=== PATIENT | female | born 2005 | race Caucasian/White ===

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

== ENCOUNTER 2023-05-12 18:28 | Emergency (ER) | payer OTHER, SELFPAY ==
[2023-05-12 18:33] VITALS: BP 150/80; PULSE 98; RESP 18; TEMP 37.3; O2SAT 99
[2023-05-12 18:37] VITALS: BP 150/80; PULSE 98; RESP 18; TEMP 37.3; O2SAT 99
--- NOTE | 2023-05-12 18:54 | ED.URI ---
HPI - URI/Sore Throat General Chief Complaint: Upper Respiratory Infection Stated Complaint: fever/headache/aches/throat Time Seen by Provider: 05/12/23 18:54 Source: patient and RN notes reviewed Mode of arrival: ambulatory Limitations: no limitations History of Present Illness HPI Narrative: 18-year-old female presents concern for fever, body aches, headache, sore throat, nasal congestion, rhinorrhea. Reports symptoms started yesterday. She reports she has a preemie baby a home. She denies taking any medications for her symptoms. MD elicited complaint: cough and sore throat Related Data Home Medications Medication Instructions Recorded Confirmed dicyclomine 10 mg capsule 10 mg PO BID 05/10/23 05/10/23 Allergies Allergy/AdvReac Type Severity Reaction Status Date / Time adhesive tape Allergy Itching Verified 05/10/23 16:39 Review of Systems Review of Systems: CONSTITUTIONAL: Reports malaise, chills, sweats, fever. EYES: Denies visual changes, redness, or discharge. ENT: Reports rhinorrhea, congestion, and sore throat. CARDIOVASCULAR: Denies chest pain, palpitations, or edema. RESPIRATORY: Reports cough. Denies dyspnea. GASTROINTESTINAL: Denies abdominal pain, nausea, vomiting, diarrhea SKIN: Denies rash or itching. MUSCULOSKELETAL: Reports myalgia. NEUROLOGIC: Reports headache. All systems reviewed & are unremarkable except as noted in HPI and below PMFSH Past Medical History Medical History (Updated 05/12/23 @ 19:29 by Marguerite Horn NP) IBS (irritable bowel syndrome) Patient denies medical problems Pre-diabetes Surgical History Surgical History History of hemangioma excision Family History Family History Grandparent Diabetes mellitus Heart disease Social History Social History Smoking status: Never smoker Alcohol intake: former Alcohol use details: pt is Substance use: never Living arrangements: with family Occupation/Education: occupation Gender identity (if verbalized by the patient): Female Sexual Orientation (if Verbalized by the Patient): Straight or Heterosexual Comments At time of signature, agree with nursing past medical, surgical, social and family history. There is no relevant family history pertinent to the presenting complaint Exam Narrative: GENERAL: Well-appearing, well-nourished, and in no acute distress. HEAD: Normocephalic EYES: PERRLA, conjunctivae clear ENT: Nares clear, turbinates edematous and erythematous, clear discharge. Mucous membranes moist. TM pearly garrison with dull light reflex bilaterally; no tragal tenderness. Oropharynx not erythematous without lesions. Tonsils not enlarged and without exudate, no drooling, no hoarseness, no trismus, uvula midline. NECK: Supple. No lymphadenopathy CHEST: Clear to auscultation, breath sounds equal. No wheezing, rhonchi, rales, or stridor. No respiratory distress, speaks in full sentences. HEART: Regular rate and rhythm. No murmur heard. SKIN: Warm, dry, no rash. NEURO: Alert and oriented x3. PSYCH: Normal mood and affect Course Course Emergency Course: Patient is aware of diagnosis, understands and agrees to treatment plan. Anticipatory guidance given. Patient agrees to follow-up as directed and is aware of reasons to seek care at the emergency department. Portions of this record may have been created with voice recognition software Level of Care: Express Care Visit Vital Signs Vital signs: Vital Signs Temperature 99.2 F 05/12/23 18:33 Pulse Rate 98 05/12/23 18:33 Respiratory Rate 18 05/12/23 18:33 Blood Pressure 150/80 H 05/12/23 18:33 Pulse Oximetry 99 05/12/23 18:33 Oxygen Delivery Room Air 05/12/23 18:33 Temperature 99.2 F 05/12/23 18:37 Pulse Rate 98 05/12/23 18:37 Respiratory Rate 18
== END 2023-05-12 19:37 | disposition home or self-care (01) ==
PROVIDERS: Emergency Provider Nurse Practitioner
DX: B34.9 Viral infection, unspecified (principal); Z20.822 Contact with and (suspected) exposure to COVID-19; R73.03 Prediabetes
CPT/HCPCS: 87081; 87426; 87804; 87880; 99213; C9803; G0463

== ENCOUNTER 2024-05-03 13:21 | Emergency (ER) | payer OTHER, SELFPAY ==
--- NOTE | ~2024-05-03 | XR_ITS ---
XR abdomen/kub 1V Ordering provider: Ammy Weaver NP History: . Swelling stretchmarks LT below belly button 2 weeks hx ibs . Comparison: None. FINDINGS: BOWEL: Nonobstructive bowel gas pattern. ORGANOMEGALY: None. SIGNIFICANT PATHOLOGIC CALCIFICATIONS: None. OTHER: No free air is seen under the diaphragm. IMPRESSION: NO ACUTE ABDOMINAL FINDINGS. Reviewed, dictated and finalized at location A. 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
[2024-05-03 13:33] VITALS: BP 129/70; PULSE 79; RESP 16; TEMP 37.1; O2SAT 100
--- NOTE | 2024-05-03 14:02 | ED_ITS ---
HPI - Abdominal Pain General Chief Complaint: Abdominal Pain Stated Complaint: Lump on Stomach has IBS was told to get evaluated Time Seen by Provider: 05/03/24 14:02 Source: patient, RN notes reviewed and old records reviewed Mode of arrival: ambulatory Limitations: no limitations History of Present Illness HPI narrative: 19 year old female who presents to [facility] care with complaints of 2 week duration of increased IBS symptoms and reports that she feels like she has a raised area on her left abdomen area. Patient reports that she will get some sharp pains in her abdomen and then she gets diarrhea some times everyday. Patient reports that she has had IBS symptoms since she was 11 years old with the intermittent colicky abdominal pain and diarrhea. She reports that she has never seen GI specialist or had a scope done. Patient reports no incidence of nausea with vomiting or any noted blood in stools. Patient reports that she did try Bentyl in the past with no help with symptoms.Patient reports no pain to abdomen at present time. MD elicited complaint: other (IBS) Pertinent past history: other (states history of IBS symptoms since around 11 years old ) Onset (ago): week(s) (increased symptoms for 2 weeks.) Pain Consistency: intermittent and colicky Location: LLQ Pain scale (0-10): 2 Quality: cramping, sharp and dull Associated symptoms: diarrhea Treatments prior to arrival: other (none) Related Data Allergies Allergy/AdvReac Type Severity Reaction Status Date / Time adhesive tape Allergy Itching Verified 05/03/24 15:09 Review of Systems Review of Systems: CONSTITUTIONAL: Denies fever, chills, or sweats. EYES: Denies visual changes, redness, or discharge. ENT: Denies rhinorrhea, congestion, sore throat, or otalgia. CARDIOVASCULAR: Denies chest pain, palpitations, or edema. RESPIRATORY: Denies cough or dyspnea. GASTROINTESTINAL: Denies present abdominal pain, nausea, vomiting, reports some episodes of diarrhea with colicky low abdominal pain GENITOURINARY: Denies dysuria or hematuria. SKIN: Denies rash or itching. MUSCULOSKELETAL: Denies back pain, joint pain, or myalgia. NEUROLOGIC: Denies headache, numbness, or weakness. PSYCHIATRIC:Reports history of anxiety or depression. All systems reviewed & are unremarkable except as noted in HPI and below PMFSH Past Medical History Medical History ADHD (attention deficit hyperactivity disorder) IBS (irritable bowel syndrome) Patient denies medical problems Pre-diabetes Surgical History Surgical History History of hemangioma excision Family History Family History Grandparent Diabetes mellitus Heart disease Social History Social History Smoking status: Current every day smoker Tobacco type: e-cigarettes/vaping Alcohol intake: current Alcohol use details: rare social Substance use: never Substance use type: does not use Living arrangements: with family Occupation/Education: occupation Gender identity (if verbalized by the patient): Female Sexual Orientation (if Verbalized by the Patient): Straight or Heterosexual Comments At time of signature, agree with nursing past medical, surgical, social and family history. There is no relevant family history pertinent to the presenting complaint Exam Narrative: GENERAL: Well-appearing, well-nourished, and in no acute distress. HEAD: Normocephalic, atraumatic. EYES: PERRLA and EOMI. ENT: Nares clear, no rhinorrhea or epistaxis. Mucous membranes moist.TM's normal light reflex, throat pink with no lesions or swelling NECK: Supple. no lymphadenopathy CHEST: Clear to auscultation. No respiratory distress.SAO2 100% on room air HEART: Regular rate and rhythm. No murmur heard. Normal peripheral pulses. ABDOMEN: Soft, nontender on palpation,no rigidity, no McBurney point tenderness, palpable mass noted in left lower abdomen, nondistended, normal active bowel sounds. EXTREMITIES: Normal range of motion. No edema. SKIN: Warm, dry, no rash. NEURO: No focal deficits. Alert and oriented x3. Course Course Emergency Course: Patient is aware of diagnosis, understands and agrees to treatment plan.? Anticipatory guidance given.? Patient agrees to follow-up as directed and is aware of reasons to seek care at the emergency department. Portions of this record may have been created with voice recognition software Level of Care: Express Care Visit Vital Signs Vital signs: Vital Signs Temperature 37.1 C 05/03/24 13:33 Pulse Rate 79 05/03/24 13:33 Respiratory Rate 16 05/03/24 13:33 Blood Pressure 129/70 05/03/24 13:33 Pulse Oximetry 100 05/03/24 13:33 Oxygen Delivery Room Air 05/03/24 13:33 Temperature 37.1 C 05/03/24 13:33 Pulse Rate 79 05/03/24 13:33 Respiratory Rate 16 05/03/24 13:33 Blood Pressure 129/70 05/03/24 13:33 Pulse Oximetry 100 05/03/24 13:33 Oxygen Delivery Room Air 05/03/24 13:33 Reviewed MDM - Abdominal Pain Differential Diagnosis Differential diagnosis: Likely diverticulitis and other (abdominal discomfort and cramping, episodes of diarrhea, IBS) Medical Records Attestation: I reviewed the patient's medical records. Imaging Data Attestation: I personally reviewed and interpreted this imaging study as follows: My impression: no obstruction or free air in abdomen Radiologist's impression: ITS Impressions Abdomen X-Ray 05/03/24 14:29 IMPRESSION: NO ACUTE ABDOMINAL FINDINGS. [place] [id number] XRay Report Signed Patient: Mariya Sigala : 2005 MR#: [id number] Age: 19 Acct:[id number] Loc: [facility] ADM Date: 05/03/24Attending Dr: Ordering Physician: Ammy Weaver APRN Date of Service: 05/03/24 Procedure(s): XR abdomen/kub 1V Accession Number(s): [id number] cc: Ammy Weaver APRN; UNKNOWN,DOCTOR~ XR abdomen/kub 1V Ordering provider: Ammy Weaver NP History: . Swelling stretchmarks LT below belly button 2 weeks hx ibs . Comparison: None. FINDINGS: BOWEL: Nonobstructive bowel gas pattern. ORGANOMEGALY: None. SIGNIFICANT PATHOLOGIC CALCIFICATIONS: None. OTHER: No free air is seen under the diaphragm. IMPRESSION: NO ACUTE ABDOMINAL FINDINGS. Reviewed, dictated and finalized at location A. [facility] [employer] Dictated By: Fernando Rmasay MD 05/03/24 1429 Signed By: <Electronically signed by Fernando Ramsay MD in OV> Critical Care Time Critical Care Time Critical Care Time: No Discharge Plan Discharge Clinical Impression: History of IBS Patient Disposition: Home, Self-Care Condition: Stable Instructions: Irritable Bowel Syndrome (ED) Additional Instructions: Avoid fried, greasy, fatty, fried foods Avoid caffeine, nicotine, and alcohol Levsin up to 4 times daily for abdominal cramping. Tylenol only for discomfort Sometimes ibuprofen/Aleve can cause increased stomach upset Can take [id number] Imodium for diarrhea Follow-up with her PCP if continued problems or uncontrolled pain Follow up with PCP for referral to GI for scope If your symptoms persist, change or worsen significantly before you can contact your personal physician then please, without delay, go to the emergency department for further evaluation. Follow-up with PCP in 7-10 days or sooner if needed Follow up with PCP soon in regards to your blood pressure which is elevated abov e threshold for referral. Blood pressure above 120/80 may indicate pre- hypertension. Prescriptions: New hyoscyamine sulfate [Levsin/SL] 0.125 mg tablet, sublingual 0.125 mg sublingual QID PRN (Reason: dyspepsia) Qty: 20 0RF Follow-up/Referrals: UNKNOWN,DOCTOR [Primary Care Provider] - Time of Disposition: 14:50 Quality Hilario Coma Scale Eyes: Open Verbal: Oriented and Alert Motor: Follows Commands [place] Coma Total Score: 15
== END 2024-05-03 14:55 | disposition home or self-care (01) ==
PROVIDERS: Emergency Provider Registered Nurse
DX: K58.9 Irritable bowel syndrome, unspecified (principal); R73.03 Prediabetes; F17.290 Nicotine dependence, other tobacco product, uncomplicated
CPT/HCPCS: 74018; 99213; G0463

== ENCOUNTER 2025-01-02 17:05 | Outpatient (CLI) | payer BC, MEDICAID, SELFPAY ==
--- OUTSIDE RECORDS SUMMARY | 2025-01-02 17:17 | XMS_ITS | Referral Summary ---
Author Organization [facility] Address [address] [place] [address] Care Team Providers Care Automated Access Systems Technician Name Role Phone No, Physician Primary Care Provider [phone] Allergies Active Allergy Reactions Criticality Noted Date Comments Adhesive Swelling,Redness Medium 04/17/2022 Medications methylphenidat e (RITALIN) 10 mg tablet take 1 tablet by oral route every day 0 0 5 Active methylphenidat e ER (CONCERTA) 36 mg CR tablet take 1 tablet by oral route every day in the morning 0 0 5 Active promethazine-D M (PROMETHAZINE- DM) 1.25-3 mg/mL syrup Take 5 mL by mouth 4 (four) times a day as needed for cough (Runny nose, and nausea) Collaborating physician Titus Dunbar MD 118 mL 2 Active albuterol HFA (PROVENTIL HFA,VENTOLIN HFA,PROAIR HFA) 90 mcg/actuation inhaler Inhale 2 puffs every 4 (four) hours as needed for wheezing or shortness of breath Collaborating physician Titus Dunbar MD 1 each 2 Active acetaminophen (TYLENOL) 500 mg tablet Take 1 tablet (500 mg total) by mouth every 6 (six) hours as needed for pain or fever Collaborating physician Titus Dunbar MD 30 tablet 2 Active HYDROcodone-ac etaminophen (NORCO) 5-325 mg per tabletIndicati ons:Pain Take 1-2 tablets by mouth every 4 (four) hours as needed for pain Do not exceed 8 tablets/day. 6 tablet 3 Active Active Problems Problem Noted Date Diagnosed Date COVID-19 virus infection 01/14/2022 Panic attack 01/14/2022 Positive urine test 01/14/2022 Attention-deficit hyperactivity disorder 012 Overview (04/17/2022): Note: Unchanged Social History Tobacco Use Types Packs/Day Years Used Date Smoking Tobacco: Never Tobacco Cessation:Counseling Given: Not Answered Social Connection and Isolat ion Panel [NHANES] Answer Date Recorded In a typical week, how many times do you talk on the phone with family, friends, or neighbors? More than three times a week 05/04/2022 How often do you get togethe r with friends or relatives? More than three times a week 05/04/2022 How often do you attend chur ch or pentecostal services? More than 4 times per year 05/04/2022 Do you belong to any clubs o r organizations such as episcopalian groups, unions, fraternal or athletic groups, or school groups? No 05/04/2022 How often do you attend meet ings of the clubs or organizations you belong to? Never 05/04/2022 Are you , , di vorced, , never , or living with a partner? Never 05/04/2022 AUDIT-C Answer Date Recorded Q1: How often do you have a drink containing alc ohol? Never 05/04/2022 Average Number of Drinks Not on file 022 Q3: How often do you have si x or more drinks on one occasion? Never 05/04/2022 Overall Financial Resource Strain (CARDIA) Answe r Date Recorded How hard is it for you to pa y for the very basics like food, housing, medical care, and heating? Not very hard 05/04/2022 PHQ-2 Answer Date Recorded PHQ-2 Total Score (If total score is 3 or more points, staff should administer the PHQ-9) 0 05/04/2022 [facility] - Occupational Stress Questionnaire Answer Date Recorded Do you feel stress - tense, restless, nervous, or anxious, or unable to sleep at night because your mind is troubled all the time - these days? Not at all 05/04/2022 Exercise Vital Sign Answer Date Recorde d On average, how many days pe r week do you engage in moderate to strenuous exercise (like a brisk walk)? 0 days 05/04/2022 On average, how many minutes do you engage in exercise at this level? 0 min 05/04/2022 Hunger Vital Sign Answer Date Recorded Within the past 12 months, y ou worried that your food would run out before you got the money to buy more. Never true 05/04/20 22 Within the past 12 months, t he food you bought just didn't last and you didn't have money to get more. Never true 05/04/2022 PRAPARE - Transportation Answer Date Re corded In the past 12 months, has l ack of transportation kept you from medical appointments or from getting medications? No 04/08 In the past 12 months, has l ack of transportation kept you from meetings, work, or from getting things needed for daily living? No 05/04/2022 Housing Stability Vital Sign Answer Rajesh e Recorded In the last 12 months, was t here a time when you were not able to pay the mortgage or rent on time? No 05/04/2022 Number of Places Lived in the Last Year Not on f ile 05/04/2022 In the last 12 months, was t here a time when you did not have a steady place to sleep or slept in a mcc (including now)? No 05/04/2022 Personal Safety Answer Date Recorded Have you ever been in or are you currently in a harmful physical or emotional relationship or is someone making you feel afraid or unsafe? Denies 05/22/2023 Comments No Sex and Gender Information Value Date Recorded Sex Assigned at Not on file Legal Sex Female 3:55 AM CALL OUT OPERATOR Gender Identity Not on file Sexual Orientation Not on file Last Filed Vital Signs Vital Sign Reading Time Taken Comments Blood Pressure 142/73 05/22/2023 12:00 PM CALL OUT OPERATOR Pulse 95 05/22/2023 12:00 PM CALL OUT OPERATOR Temperature 36.8 C (98.2 F) 05/22/2023 11:35 AM CALL OUT OPERATOR Respiratory Rate 18 05/22/2023 12:00 PM CALL OUT OPERATOR Oxygen Saturation 96% 05/22/2023 12:00 PM CALL OUT OPERATOR Inhaled Oxygen Concentration - - Weight 81.6 kg (180 lb) 05/22/2023 11:35 AM CALL OUT OPERATOR Height 165.1 cm (5' 5) 05/22/2023 11:35 AM CALL OUT OPERATOR Body Mass Index 29.95 05/22/2023 11:35 AM CALL OUT OPERATOR Plan of Treatment Not on file Procedures Procedure Name Priority Date/Time Associated Diagnosis Comments HEPATITIS PANEL, ACUTE STAT 05/04/2022 2:41 AM CALL OUT OPERATOR from Last 3 Months or Most Recently Relevant to Health Maintenance Results * Hepatitis panel, acute (05/04/2022 2:41 AM CALL OUT OPERATOR) Hep A IgM Nonreactive Nonreactive [facility] ([place]) Comment: Interpretive Data: If Hep A IgM Ab is reported as Equivocal, a new sample should be drawn in two weeks for testing. Current interpretive data was last revised on 19. Testing performed by: [address] [address] Hep B core IgM Nonreactive Nonreactive [facility] ([place]) Comment: Interpretive Data If HepB Core IgM Ab is reported as Equivocal, a new sample should be drawn in two weeks for testing. Current interpretive data was last revised on 19. Testing performed by: [facility], [address] [place] [address]., [id number] Hep C Ab Nonreactive Nonreactive [facility] ([place]) Comment: Interpretive Data Nonreactive: Antibodies to HCV not detected. Does NOT exclude the possibility of recent exposure to HCV. Equivocal: Equivocal for HCV antibodies. Supplemental molecular testing will be automatically performed to determine infection status in accordance with current CDC screening recommendations. Reactive: Positive for HCV antibodies. This may represent current or past HCV infection. Supplemental molecular testing will be automatically performed to determine current infection status in accordance with current CDC screening recommendations. Interpretive data was last revised on 2019. Testing performed by: [address] [address] HepBsAg Nonreactive Nonreactive [facility] ([place]) Comment:Testing performed by : [address] [address] Blood 05/04/2022 2:41 AM CALL OUT OPERATOR 05/04/2022 9:38 AM CALL OUT OPERATOR Clari Monroy DO LAB MICROBIOLOGY - GENE RAL ORDERABLES Final Result [facility] ([place]) [address] [facility] Department [place] [address] from Last 3 Months or Most Recently Relevant to Health Maintenance Insurance [place] [address] [facility] Care Teams Automated Access Systems Technician Relationship Specialty Start Date End Date No, Physician PCP - General 01/14/22
--- OUTSIDE RECORDS SUMMARY | 2025-01-02 17:17 | XMS_ITS | Clinical Summary ---
Author Organization [facility] Address [address] [place] [address] Phone Care Team Providers Care Heat Treat Inspector Name Role Phone Orquidea Justice APRN, LINA Primary Care P rovider Allergies Active Allergy Reactions Criticality Noted Date Comments Wound Dressing Adhesive Rash,Swelling Medium 2 Medications dicyclomine (BENTYL) 10 MG CapsuleIndication s:Irritable bowel syndrome with diarrhea Take 1 Capsule by mouth 3 times daily (before meals). 270 Capsule 1 3 Active Additional Information Patient not taking.Reported on 05/03/2024 methylphenidate (Concerta) 18 MG Tablet Controlled ReleaseIndication s:Attention deficit hyperactivity disorder (ADHD), predominantly inattentive type Take 1 Tablet by mouth every morning. 30 Tablet 4 Active Additional Information Patient not taking.Reported on 05/03/2024 fluconazole (DIFLUCAN) 150 MG TabletIndications :Tinea versicolor Take 1 Tablet by mouth once a week. 4 Tablet 4 Active Additional Information Patient not taking.Reported on 05/03/2024 Active Problems No known active problems Immunizations Immunization Administration Dates Next Due DTAP VACCINE 04/09/2009, 5,2003,07/09,2003 DTAP-IPV 04/09/2009 DTAP/HEPB/IPV Vaccine 2003,2003,05/07 Hepatitis A Vaccine, Pediatric/adolescent, 2 Dose Schedule 11/08/2014 Hepatitis A, Pediatric, Unsp ecified Formulation 04/02/2006,03/12/2005,03/12/2005 Hepatitis B Vaccine, Pediatric/adolescent 2003 Hepatitis B Vaccine,unspecif ied Formulation 2003,2003 Hib (PRP-OMP) Vaccine 08/28/2004, 004,2003,05/17 Hib Vaccine,unspecified Formulation 08/06,2003,2003,05/17 Human Papillomavirus (HPV) 9 -valent Vaccine 05/16/2015 Human Papillomavirus Vaccine (HPV), quadrivalent 01/10/2015,11/08/2014 Inactivated Polio Vaccine 04/09/2009,,2003,05/17 Influenza Vaccine, Quadrivalent, PF 03/11/2021,1 Influenza Vaccine,unspecifie d Formulation 04/20/2005,04/26/2004,03/22/2004 MMR Vaccine 04/09/2009,04/04/2004 Meningococcal Group B OMV 03/11/2021 Meningococcal Vaccine 03/11/2021,11/08/2014 Pneumococcal Vaccine - 13 Valent 005,01/03/2004,2003,05/17 Pneumococcal Vaccine Peds - 7 Valent ,01/03/2004,2003,05/17 TDAP Vaccine 11/08/2014 Varicella Vaccine Live 04/09/2009,04/04/2004 Family History Medical History Relation Name Comments No Known Problems Father No Known Problems Mother Relation Name Status Comments Father Alive Mother Alive Social History Tobacco Use Types Packs/Day Years Used Date Smoking Tobacco: Never Smokeless Tobacco: Never Tobacco Cessation:Counseling Given: No Alcohol Use Standard Drinks/Week Comments Never 0 (1 standard drink = 0.6 oz pur e alcohol) AUDIT-C Answer Date Recorded Q1: How often do you have a drink containing alc ohol? Never 08/16/2019 Average Number of Drinks Not on file 020 Frequency of Binge Drinking Not on file 08/05 Comments No Sex and Gender Information Value Date Recorded Sex Assigned at Female 05/13/2024 12:39 AM AGRICULTURAL EQUIPMENT DESIGN ENGINEER Legal Sex Female 8:07 AM CDT Gender Identity Female 05/13/2024 12:39 AM AGRICULTURAL EQUIPMENT DESIGN ENGINEER Sexual Orientation Not on file Last Filed Vital Signs Vital Sign Reading Time Taken Comments Blood Pressure 154/70 05/13/2024 2:37 AM AGRICULTURAL EQUIPMENT DESIGN ENGINEER Pulse 84 05/13/2024 2:37 AM AGRICULTURAL EQUIPMENT DESIGN ENGINEER Temperature 36.4 C (97.6 F) 05/12/2024 11:29 PM AGRICULTURAL EQUIPMENT DESIGN ENGINEER Respiratory Rate 18 05/13/2024 2:37 AM AGRICULTURAL EQUIPMENT DESIGN ENGINEER Oxygen Saturation 100% 05/13/2024 2:37 AM AGRICULTURAL EQUIPMENT DESIGN ENGINEER Inhaled Oxygen Concentration - - Weight 77.1 kg (170 lb) 05/12/2024 11:29 PM AGRICULTURAL EQUIPMENT DESIGN ENGINEER Height 165.1 cm (5' 5) 05/12/2024 11:29 PM AGRICULTURAL EQUIPMENT DESIGN ENGINEER Body Mass Index 28.29 05/12/2024 11:29 PM AGRICULTURAL EQUIPMENT DESIGN ENGINEER Plan of Treatment Upcoming Encounters Date Type Department Care Team (Late st Contact Info) Description 01/08/2025 9:15 AM CDT Office Visit [facility] [place] [address] [place] [address] Farhat Griffiths, PAC [address] [place] [address] Health Maintenance Due Date Last Done Comments Meningococcal B Immunization (2 of 2 - Bexsero SCDM 2-dose series) 09/09/2021 03/11/2021 SARS-COV-2 Immunization ( season) 2024 12/31/2020, 12/09/2020 Pap Smear 2024 DTaP/Tdap/Td Immunization (7 - Td or Tdap) 11/08/2024 11/08/2014, 04/09/2009, 04/09/2009, Additional history exists Influenza Immunization (#1) 2025 100 10/2020, 03/18/2017, 04/20/2005, Additional history exists Respiratory Syncytial Virus (RSV) Immunization (Adult) (1 - 1-dose 75+ series) 2078 Hepatitis B Immunization Completed 004, 2003, 2003, Additional history exists Pneumococcal Immunization Combined Completed 08/28/2004, 08/28/2004, 01/03/2004, Additional history exists Measles Mumps Rubella (MMR) Immunization Discontinued 04/09/2009, 04/04/2004 Polio (IPV) Immunization Discontinued 009, 04/09/2009, 2003, Additional history exists Varicella Immunization Discontinued 04/09/2009, 2003 Hepatitis A Immunization Discontinued 015, 04/02/2006, 03/12/2005, Additional history exists Human Papillomavirus (HPV) Immunization Completed 05/16/2015, 01/10/2015, 11/08/2014 Meningococcal Immunization (ACWY) Completed 03/11/2021, 11/08/2014 Hepatitis C Virus (HCV) Screening Completed 05/04/2022 Rotavirus Immunization Aged Out No lo nger eligible based on patient's age to complete this topic Insurance MEDICAID [place] Care Teams Heat Treat Inspector Relationship Specialty Start Date End Date Orquidea Justice APRN, DRILLING MACHINE OPERATOR [address] [place] [address] PCP - General Advanced Practice Nurse 05/03/23
--- OUTSIDE RECORDS SUMMARY | 2025-01-02 17:17 | XMS_ITS | Clinical Summary ---
Author Organization [facility] Address [address] [place] [address] Care Team Providers Care Motion Graphics Artist Name Role Phone No, Physician Primary Care Provider [phone] Allergies Active Allergy Reactions Criticality Noted Date [...] hyperactivity disorder 012 Overview (04/17/2022): Note: Unchanged Surgical History Surgery Date Site/Laterality Comments OTHER SURGICAL HISTORY Hemangioma: removed Medical History Medical History Date Comments Mild persistent asthma Asthma, m ild persistent; Comments: 05/25/2015 - Attention deficit disorder ADHD Hemangioma Hemangioma; Comm ents: 05/25/2015 - Social History Tobacco Use Types Packs/Day Years [...] often do you attend chur ch or gnosticism services? More than 4 times per year 05/04/2022 Do you belong to any clubs o r organizations such as muslim groups, unions, fraternal or athletic groups, or [...] staff should administer the PHQ-9) 0 05/04/2022 [facility] [place] of Occupat ional Health - Occupational Stress [...] place to sleep or slept in a nursing home (including now)? No 05/04/2022 Personal Safety Answer Date Recorded Have you ever been in or are you currently in a harmful physical or emotional relationship or is someone making you feel afraid or unsafe? Denies 05/22/2023 Comments No Sex and Gender Information Value Date Recorded Sex Assigned at Not on file Legal Sex Female 3:55 AM NUCLEAR CONTROL OPERATOR Gender Identity Not on file Sexual Orientation Not on file Obstetrics History Para Term AB IAB SAB Ectopic Multiple Livin g Live Births 1 Date Outcome GA Total Labor Labor/2nd/3rd Weight Sex Type Anes PTL Gloria A1 A5 Name Clin Last Filed Vital Signs Vital Sign Reading Time Taken Comments Blood Pressure 142/73 05/22/2023 12:00 PM NUCLEAR CONTROL OPERATOR Pulse 95 05/22/2023 12:00 PM NUCLEAR CONTROL OPERATOR Temperature 36.8 C (98.2 F) 05/22/2023 11:35 AM NUCLEAR CONTROL OPERATOR Respiratory Rate 18 05/22/2023 12:00 PM NUCLEAR CONTROL OPERATOR Oxygen Saturation 96% 05/22/2023 12:00 PM NUCLEAR CONTROL OPERATOR Inhaled Oxygen Concentration - - Weight 81.6 kg (180 lb) 05/22/2023 11:35 AM NUCLEAR CONTROL OPERATOR Height 165.1 cm (5' 5) 05/22/2023 11:35 AM NUCLEAR CONTROL OPERATOR Body Mass Index 29.95 05/22/2023 11:35 AM NUCLEAR CONTROL OPERATOR Plan of Treatment Health Maintenance Due Date Last Done Comments Cervical Cancer Screening 2003 Pneumococcal vaccine <65 (1 of 1 - PPSV23) 2009 08/28/2004, 01/03/2004, 2003, Additional history exists Regular Well Visit/Exam 18-64 2021 Meningococcal B Vaccine (2 o f 2 - Bexsero SCDM 2-dose series) 09/09/2021 03/11/2021 Depression Screening 04/17/2023 04/17/2022, 04/17/20 22 DTaP/Tdap/Td Vaccine (7 - Td or Tdap) 11/08/2024 11/08/2014, 04/09/2009, 04/09/2009, Additional history exists Influenza Vaccine (#1) 2025 , 03/18/2017, 04/20/2005, Additional history exists Hepatitis B Screening Completed 2003 , 2003, 2003, Additional history exists Varicella Vaccines Completed 04/09/2009, 04/04/2004 HPV Vaccines Completed 05/16/2015, 11/2014, 11/08/2014 Meningococcal Vaccine Completed 03/11/2021, 015 Hepatitis C Screening Completed 05/04/2022 Procedures Procedure Name Priority Date/Time Associated Diagnosis Comments HEPATITIS PANEL, ACUTE STAT 05/04/2022 2:41 AM NUCLEAR CONTROL OPERATOR from Last 3 Months or Most Recently Relevant to Health Maintenance Results * Hepatitis panel, acute (05/04/2022 2:41 AM NUCLEAR CONTROL OPERATOR) Hep A IgM Nonreactive Nonreactive [facility] ([facility]) Comment: Interpretive Data: If Hep A IgM Ab is reported as Equivocal, a new sample should be drawn in two weeks for testing. Current interpretive data was last revised on 19. Testing performed by: [address] [address] Hep B core IgM Nonreactive Nonreactive C [facility] ([place]) Comment: Interpretive Data If HepB Core IgM Ab is reported as Equivocal, a new sample should be drawn in two weeks for testing. Current interpretive data was last revised on 19. Testing performed by: [address] [address] Hep C Ab Nonreactive Nonreactive [facility] ([place]) Comment: Interpretive Data Nonreactive: Antibodies to [...] last revised on 2019. Testing performed by: [address] [address] HepBsAg Nonreactive Nonreactive [facility] ([place]) Comment:Testing performed by : [address] [address] Blood 05/04/2022 2:41 AM NUCLEAR CONTROL OPERATOR 05/04/2022 9:38 AM NUCLEAR CONTROL OPERATOR Clari Monroy DO LAB MICROBIOLOGY - GENE RAL ORDERABLES Final Result [facility] (LEWIS) 1 [facility] Department [place] [address] from Last 3 Months or Most Recently Relevant to Health Maintenance Insurance [facility] Member Subscriber Plan / Payer ( fective 2021-Present) Name:Mariya Billingsley Relation to Subscriber:Child Name:ANASTASIIA BILLINGSLEY (Home) Address: [address] [place] [address] [place] [address] Payer ID:[id number] (NAIC) Type:BC ALLIANCE Address: [address] [place] [id number] Care Teams Motion Graphics Artist Relationship Specialty Start Date End Date No, Physician PCP - General 01/14/22
--- OUTSIDE RECORDS SUMMARY | 2025-01-02 17:17 | XMS_ITS | Clinical Summary ---
Author Organization [facility] Address [address] [place] [phone] Phone Care Team Providers Care Shuttler Car Name Role Phone Unavailable Primary Care Provider Unavailabl e Allergies Active Allergy Reactions Criticality Noted Date Comments Adhesive Rash Low 05/04/2022 Medications VIT-IRON FUM-FOLIC AC ORAL Take by mouth. Active cephALEXin (KEFLEX) 500 mg capsule Take 1 Capsule (500 mg) by mouth 4 times daily. 20 Capsule 05/28/2022 4:34 PM SYSTEM ARCHIVE ANALYST 05/27/2022 Active Active Problems Problem Noted Date Diagnosed Date High-risk in second trimester 05/25/20 Delivery by classical section History of COVID-19 05/25/2022 Delivery of by section 2021 Encounter for blood typing 05/18/2022 Gestational diabetes mellitus, class A1 05/18/20 MFM tx; Classical c/s ([facility]) 05/04/2022 COVID-19 virus infection 01/14/2022 Immunizations Immunization Administration Dates Next Due INFLUENZA VACCINE QUADRIVALENT 6 MOS UP PF IM (),05/11/2022() Social History Tobacco Use Types Packs/Day Years Used Date Smoking Tobacco: Never Smokeless Tobacco: Never Tobacco Cessation:Counseling Given: Not Answered Alcohol Use Standard Drinks/Week Comments Never 0 (1 standard drink = 0.6 oz pur e alcohol) Comments No Sex and Gender Information Value Date Recorded Sex Assigned at Not on file Legal Sex Female 4:07 AM SYSTEM ARCHIVE ANALYST Gender Identity Not on file Sexual Orientation Not on file Last Filed Vital Signs Vital Sign Reading Time Taken Comments Blood Pressure 125/75 05/28/2022 12:00 AM SYSTEM ARCHIVE ANALYST Pulse 72 05/28/2022 12:00 AM SYSTEM ARCHIVE ANALYST Temperature 36.2 C (97.2 F) 05/28/2022 12:00 AM SYSTEM ARCHIVE ANALYST Respiratory Rate 20 05/28/2022 12:00 AM SYSTEM ARCHIVE ANALYST Oxygen Saturation 98% 05/28/2022 12:00 AM SYSTEM ARCHIVE ANALYST Inhaled Oxygen Concentration - - Weight 79 kg (174 lb 2.6 oz) 05/27/2022 10:28 PM SYSTEM ARCHIVE ANALYST Height 165.1 cm (5' 5) 05/27/2022 10:28 PM SYSTEM ARCHIVE ANALYST Body Mass Index 28.98 05/27/2022 10:28 PM SYSTEM ARCHIVE ANALYST Plan of Treatment Health Maintenance Due Date Last Done Comments HPV VACCINES (1 - 3-dose series) 2018 DTAP/TDAP/TD VACCINES (1 - Tdap) 2022 HEPATITIS B VACCINES (1 of 3 - 19+ 3-dose series) 2022 CHLAMYDIA SCREENING (ANNUAL) 11-24 YEARS 05/12/2023 05/12/2022, 05/04/2022 CERVICAL CANCER SCREENING 2024 HPV/Cotest (21-29) 2024 PAP SMEAR 2024 INFLUENZA VACCINE (#1) 2025 Procedures Procedure Name Priority Date/Time Associated Diagnosis Comments VAGINOSIS/VAGINITIS PANEL PLUS Routine 05/12/2022 12:33 AM SYSTEM ARCHIVE ANALYST from Last 3 Months or Most Recently Relevant to Health Maintenance Results * VAGINOSIS/VAGINITIS PANEL PLUS (05/12/2022 12:33 AM SYSTEM ARCHIVE ANALYST) CHLAMYDIA DNA AMPLIFICATION NOT DETECTED Not Detected 05/13/2022 12:47 PM SYSTEM ARCHIVE ANALYST [facility] GC DNA AMPLIFICATION NOT DETECTED Not Detected 05/13/2022 12:47 PM SYSTEM ARCHIVE ANALYST [facility] TRICHOMONAS VAGINALIS BY PCR Not Detected Not Detected 05/13/2022 12:47 PM SYSTEM ARCHIVE ANALYST [facility] SOREN SPECIES, NOT GLABRATA BY PCR Not Detected Not Detected 05/13/2022 12:47 PM SYSTEM ARCHIVE ANALYST [facility] SOREN GLABRATA BY PCR NOT DETECTED Not Detected 05/13/2022 12:47 PM SYSTEM ARCHIVE ANALYST [facility] BACTERIAL VAGINOSIS BY PCR Not Detected Not Detected 05/13/2022 12:47 PM SYSTEM ARCHIVE ANALYST [facility] Genital SPECIMEN FROM [place] / Unknown Collection / Unknown 05/12/2022 12:33 AM SYSTEM ARCHIVE ANALYST 05/12/2022 12:43 AM SYSTEM ARCHIVE ANALYST Jeannette Castillo MD MICROBIOLOGY - GENERAL ORDERA BLES Final Result [facility] CLIA# [id number] [address] [place] [address] from Last 3 Months or Most Recently Relevant to Health Maintenance Insurance [place] RX [employer] Express RX [facility] [employer] RX [place] PLANS (INTERNAL) [facility] Internal Plans Advance Directives For more information, please contact: [phone] * Full Code (Latest Code Status on File) Date Activated Date Inactivated Comments 05/21/2022 12:31 PM 05/25/2022 3:16 PM * Full Code Date Activated Date Inactivated Comments 05/21/2022 7:51 AM 05/21/2022 12:30 PM * Full Code Date Activated Date Inactivated Comments 05/18/2022 8:48 AM 05/21/2022 7:50 AM * Full Code Date Activated Date Inactivated Comments 05/05/2022 3:03 AM 05/18/2022 8:48 AM
[2025-01-02 18:35] LABS: Syphilis IgG/IgM Antibody Non-Reactive (Nonreactive)
[2025-01-02 18:38] LABS: HIV 1/2 Ab P24 Ag Result Negative (Negative)
[2025-01-02 18:39] LABS: Hepatitis B Surface Antigen Negative (Negative)
[2025-01-02 18:45] LABS: HAV RESULT Negative (Negative); Hepatitis B Core IgM Result Negative (Negative)
== END 2025-01-02 17:06 | disposition home or self-care (01) ==
LOC: ANHLAB 17:16
PROVIDERS: Visit Provider Student in an Organized Health Care Education/Training Program
DX: Z11.3 Encounter for screening for infections with a predominantly sexual mode of transmission (principal)
CPT/HCPCS: 36415; 80074; 86593; 86703; G0432

== ENCOUNTER 2025-01-10 20:02 | Emergency (ER) | payer BC, MEDICAID, SELFPAY ==
--- NOTE | ~2025-01-10 | XR_ITS ---
CHEST RADIOGRAPH, PA AND LATERAL CLINICAL HISTORY: near syncope . COMPARISON: None available TECHNIQUE: PA and lateral views of the chest. FINDINGS The cardiomediastinal silhouette is unremarkable. The lungs are clear. IMPRESSION: No focal infiltrate or effusion. Reviewed, dictated and finalized at location A.
--- OUTSIDE RECORDS SUMMARY | 2025-01-10 20:05 | XMS_ITS | Clinical Summary ---
Author Organization [facility] Address [address] [place] [address] Care Team Providers Care Carbon Lamp Cleaner Name Role Phone No, Physician Primary Care Provider [phone] Allergies Active Allergy Reactions Criticality Noted Date [...] or shortness of breath Collaborating physician Titus Dnubar MD 1 each 2 Active acetaminophen (TYLENOL) [...] often do you attend chur ch or sabianist services? More than 4 times per year 05/04/2022 Do you belong to any clubs o r organizations such as holiness groups, unions, fraternal or athletic groups, or [...] staff should administer the PHQ-9) 0 05/04/2022 [facility] [place] of Occupat ional Health - Occupational Stress [...] place to sleep or slept in a [place] facility (including now)? No 05/04/2022 Personal Safety Answer Date Recorded Have you ever been in or are you currently in a harmful physical or emotional relationship or is someone making you feel afraid or unsafe? Denies 05/22/2023 Comments No Sex and Gender Information Value Date Recorded Sex Assigned at Not on file Legal Sex Female 3:55 AM LEATHER STRIPPING MACHINE OPERATOR Gender Identity Not on file Sexual Orientation Not on file Obstetrics History Para Term AB IAB SAB Ectopic Multiple Livin g Live Births 1 Date Outcome GA Total Labor Labor/2nd/3rd Weight Sex Type Anes PTL Gloria A1 A5 Name Clin Last Filed Vital Signs Vital Sign Reading Time Taken Comments Blood Pressure 142/73 05/22/2023 12:00 PM LEATHER STRIPPING MACHINE OPERATOR Pulse 95 05/22/2023 12:00 PM LEATHER STRIPPING MACHINE OPERATOR Temperature 36.8 C (98.2 F) 05/22/2023 11:35 AM LEATHER STRIPPING MACHINE OPERATOR Respiratory Rate 18 05/22/2023 12:00 PM LEATHER STRIPPING MACHINE OPERATOR Oxygen Saturation 96% 05/22/2023 12:00 PM LEATHER STRIPPING MACHINE OPERATOR Inhaled Oxygen Concentration - - Weight 81.6 kg (180 lb) 05/22/2023 11:35 AM LEATHER STRIPPING MACHINE OPERATOR Height 165.1 cm (5' 5) 05/22/2023 11:35 AM LEATHER STRIPPING MACHINE OPERATOR Body Mass Index 29.95 05/22/2023 11:35 AM LEATHER STRIPPING MACHINE OPERATOR Plan of Treatment Health Maintenance Due [...] HEPATITIS PANEL, ACUTE STAT 05/04/2022 2:41 AM LEATHER STRIPPING MACHINE OPERATOR from Last 3 Months or Most Recently Relevant to Health Maintenance Results * Hepatitis panel, acute (05/04/2022 2:41 AM LEATHER STRIPPING MACHINE OPERATOR) Hep A IgM Nonreactive Nonreactive [facility] ([place]) Comment: Interpretive Data: If Hep A IgM Ab is reported as Equivocal, a new sample should be drawn in two weeks for testing. Current interpretive data was last revised on 19. Testing performed by: [address] [address] Hep B core IgM Nonreactive Nonreactive [facility] ([place]) Comment: Interpretive Data If HepB Core IgM Ab is reported as Equivocal, a new sample should be drawn in two weeks for testing. Current interpretive data was last revised on 19. Testing performed by: [address] [address] Hep C Ab Nonreactive Nonreactive [facility] [...] last revised on 2019. Testing performed by: [address] [address] HepBsAg Nonreactive Nonreactive [facility] ([place]) Comment:Testing performed by : [address] [address] Blood 05/04/2022 2:41 AM LEATHER STRIPPING MACHINE OPERATOR 05/04/2022 9:38 AM LEATHER STRIPPING MACHINE OPERATOR Clari Monroy DO LAB MICROBIOLOGY - GENE RAL ORDERABLES Final Result [facility] ([place]) 1 [facility] Department [place] [address] from Last 3 Months or Most Recently Relevant to Health Maintenance Insurance [facility] Member Subscriber Plan / Payer ( fective 2021-Present) Name:Mariya Billingsley Relation to Subscriber:Child Name:ANASTASIIA BILLINGSLEY (Home) Address: [address] [place] [address] [place] [address] Payer ID:[id number] (NAIC) Type:BC ALLIANCE Address: [address] [place] [phone] Care Teams Carbon Lamp Cleaner Relationship Specialty Start Date End Date No, Physician PCP - General 01/14/22
--- OUTSIDE RECORDS SUMMARY | 2025-01-10 20:05 | XMS_ITS | Clinical Summary ---
Author Organization [facility] Address [address] [place] [phone] Phone Care Team Providers Care Steward Racetrack Name Role Phone Unavailable Primary Care Provider Unavailabl e Allergies Active Allergy Reactions Criticality Noted Date Comments Adhesive Rash Low 05/04/2022 Medications VIT-IRON FUM-FOLIC AC ORAL Take by mouth. Active cephALEXin (KEFLEX) 500 mg capsule Take 1 Capsule (500 mg) by mouth 4 times daily. 20 Capsule 05/28/2022 4:34 PM ALTERATION WORKROOM SUPERVISOR 05/27/2022 Active Active Problems Problem Noted Date Diagnosed Date High-risk in second trimester 05/25/20 Delivery by classical section History of COVID-19 05/25/2022 Delivery of by section 2021 Encounter for blood typing 05/18/2022 Gestational diabetes mellitus, class A1 05/18/20 MFM tx; Classical c/s ([facility]) 05/04/2022 COVID-19 virus infection 01/14/2022 Immunizations Immunization [...] on file Legal Sex Female 4:07 AM ALTERATION WORKROOM SUPERVISOR Gender Identity Not on file Sexual Orientation Not on file Last Filed Vital Signs Vital Sign Reading Time Taken Comments Blood Pressure 125/75 05/28/2022 12:00 AM ALTERATION WORKROOM SUPERVISOR Pulse 72 05/28/2022 12:00 AM ALTERATION WORKROOM SUPERVISOR Temperature 36.2 C (97.2 F) 05/28/2022 12:00 AM ALTERATION WORKROOM SUPERVISOR Respiratory Rate 20 05/28/2022 12:00 AM ALTERATION WORKROOM SUPERVISOR Oxygen Saturation 98% 05/28/2022 12:00 AM ALTERATION WORKROOM SUPERVISOR Inhaled Oxygen Concentration - - Weight 79 kg (174 lb 2.6 oz) 05/27/2022 10:28 PM ALTERATION WORKROOM SUPERVISOR Height 165.1 cm (5' 5) 05/27/2022 10:28 PM ALTERATION WORKROOM SUPERVISOR Body Mass Index 28.98 05/27/2022 10:28 PM ALTERATION WORKROOM SUPERVISOR Plan of Treatment Health Maintenance Due Date [...] VAGINOSIS/VAGINITIS PANEL PLUS Routine 05/12/2022 12:33 AM ALTERATION WORKROOM SUPERVISOR from Last 3 Months or Most Recently Relevant to Health Maintenance Results * VAGINOSIS/VAGINITIS PANEL PLUS (05/12/2022 12:33 AM ALTERATION WORKROOM SUPERVISOR) CHLAMYDIA DNA AMPLIFICATION NOT DETECTED Not Detected 05/13/2022 12:47 PM ALTERATION WORKROOM SUPERVISOR [facility] GC DNA AMPLIFICATION NOT DETECTED Not Detected 05/13/2022 12:47 PM ALTERATION WORKROOM SUPERVISOR [facility] TRICHOMONAS VAGINALIS BY PCR Not Detected Not Detected 05/13/2022 12:47 PM ALTERATION WORKROOM SUPERVISOR [facility] SOREN SPECIES, NOT GLABRATA BY PCR Not Detected Not Detected 05/13/2022 12:47 PM ALTERATION WORKROOM SUPERVISOR [facility] SOREN GLABRATA BY PCR NOT DETECTED Not Detected 05/13/2022 12:47 PM ALTERATION WORKROOM SUPERVISOR [facility] BACTERIAL VAGINOSIS BY PCR Not Detected Not Detected 05/13/2022 12:47 PM ALTERATION WORKROOM SUPERVISOR [facility] Genital SPECIMEN FROM [place] / Unknown Collection / Unknown 05/12/2022 12:33 AM ALTERATION WORKROOM SUPERVISOR 05/12/2022 12:43 AM ALTERATION WORKROOM SUPERVISOR Jeannette Castillo MD MICROBIOLOGY - GENERAL ORDERA BLES Final Result [facility] CLIA# [id number] [address] [place] [address] from Last 3 Months or Most Recently Relevant to Health Maintenance Insurance [place] [employer] RX [employer] Express RX [facility] [employer] RX [place] PLANS (INTERNAL) [facility] Internal Plans Advance Directives For more information, please contact: [phone] * Full Code (Latest Code Status on [...]
--- OUTSIDE RECORDS SUMMARY | 2025-01-10 20:05 | XMS_ITS | Clinical Summary ---
Author Organization [facility] Address [address] [place] [address] Phone Care Team Providers Care Vacuum Worker Name Role Phone Orquidea Justice APRN, LINA [...] Sex Assigned at Female 05/13/2024 12:39 AM DIPPER MACHINE OPERATOR Legal Sex Female 8:07 AM CDT Gender Identity Female 05/13/2024 12:39 AM DIPPER MACHINE OPERATOR Sexual Orientation Not on file Last Filed Vital Signs Vital Sign Reading Time Taken Comments Blood Pressure 154/70 05/13/2024 2:37 AM DIPPER MACHINE OPERATOR Pulse 84 05/13/2024 2:37 AM DIPPER MACHINE OPERATOR Temperature 36.4 C (97.6 F) 05/12/2024 11:29 PM DIPPER MACHINE OPERATOR Respiratory Rate 18 05/13/2024 2:37 AM DIPPER MACHINE OPERATOR Oxygen Saturation 100% 05/13/2024 2:37 AM DIPPER MACHINE OPERATOR Inhaled Oxygen Concentration - - Weight 77.1 kg (170 lb) 05/12/2024 11:29 PM DIPPER MACHINE OPERATOR Height 165.1 cm (5' 5) 05/12/2024 11:29 PM DIPPER MACHINE OPERATOR Body Mass Index 28.29 05/12/2024 11:29 PM DIPPER MACHINE OPERATOR Plan of Treatment Upcoming Encounters Date Type Department Care Team (Late st Contact Info) Description 01/15/2025 2:45 PM CDT Office Visit [facility] - [place] [address] [place] [address] Farhat Griffiths, PAC [address] [place] [address] Health Maintenance Due Date Last Done Comments Meningococcal B Immunization (2 of 2 - Bexsero SCDM 2-dose series) 09/09/2021 03/11/2021 SARS-COV-2 Immunization ( season) 2024 12/31/2020, 12/09/2020 Pap Smear 2024 DTaP/Tdap/Td Immunization (7 - Td or Tdap) 11/08/2024 11/08/2014, 04/09/2009, 04/09/2009, Additional history exists Influenza Immunization (#1) 2025 1010/2020, 03/18/2017, 04/20/2005, Additional history exists Respiratory Syncytial [...] this topic Insurance MEDICAID [place] Care Teams Vacuum Worker Relationship Specialty Start Date End Date Orquidea Justice APRN, ANIMAL HANDLER [address] [place] [address] PCP - General Advanced Practice Nurse 05/03/23
[2025-01-10 20:13] VITALS: BP 145/87; PULSE 76; RESP 16; TEMP 36.8; O2SAT 98
--- NOTE | 2025-01-10 20:35 | ECG_ITS ---
Test Date: 2025-01-10 20:41:15 Measurements Intervals Winner Rate: 72 P: 62 HI: 165 QRS: 66 QRSD: 84 T: 49 QT: 357 QTc: 393 Interpretive Statements SINUS RHYTHM WITH SINUS ARRHYTHMIA NORMAL ECG No previous ECG available for comparison Electronically Signed On 01-11-2025 06:16:59 CDT by Constantino Montes D.O.
[2025-01-10 20:52] LABS: Hematocrit 36.6 % (37.0-47.0); Hemoglobin 11.6 g/dL (12.0-15.0); Immature Granulocyte Percent A 0.3 % (0-0.5); Lymphocytes Absolute Auto 2.74 K/mm3 (0.9-3.2); Mean Corpuscular HGB Conc 31.7 g/dl (32-36); Mean Corpuscular Hemoglobin 27.6 pg (26-34); Mean Corpuscular Volume 86.9 fl (80-100); Nucleated Red Blood Cells Absolute Auto 0.000 K/mm3 (0.0-0.012); Nucleated Red Blood Cells Perc 0.0 % (0.0-0.2); Platelet Count Result 304 k/mm3 (150-375); Red Blood Count 4.21 M/mm3 (4.2-5.4); White Blood Count 9.5 K/mm3 (4.5-10.0)
[2025-01-10 21:05] LABS: Alanine Aminotransferase 13 U/L (6-35); Albumin Level 4.7 g/dL (3.5-5.1); Alkaline Phosphatase 66 U/L (38-126); Anion Gap 8 mmol/L (4-12); Aspartate Amino Transferase 19 U/L (14-36); Bilirubin,Total 0.2 mg/dL (0.2-1.3); Blood Urea Nitrogen 14 mg/dL (7-17); Calcium 9.5 mg/dL (8.4-10.2); Carbon Dioxide 24 mmol/L (22-30); Chloride 105 mmol/L (98-107); Estimated Glomerular Filt Rate > 60; Glucose 96 mg/dL (65-110); Potassium 3.6 mmol/L (3.4-5.0); Sodium 137 mmol/L (137-145); Total Protein 7.5 g/dL (6.3-8.2)
[2025-01-10 21:57] VITALS: BP 130/77; PULSE 77; RESP 16; O2SAT 100
--- OUTSIDE RECORDS SUMMARY | 2025-01-10 22:38 | XMS_ITS | Clinical Summary ---
Author Organization [facility] Address [address] [place] [address] Phone Care Team Providers Care Aquatic Director Name Role Phone Orquidea Justice APRN, LINA [...] Sex Assigned at Female 05/13/2024 12:39 AM ETL PROGRAMMER Legal Sex Female 8:07 AM CDT Gender Identity Female 05/13/2024 12:39 AM ETL PROGRAMMER Sexual Orientation Not on file Last Filed Vital Signs Vital Sign Reading Time Taken Comments Blood Pressure 154/70 05/13/2024 2:37 AM ETL PROGRAMMER Pulse 84 05/13/2024 2:37 AM ETL PROGRAMMER Temperature 36.4 C (97.6 F) 05/12/2024 11:29 PM ETL PROGRAMMER Respiratory Rate 18 05/13/2024 2:37 AM ETL PROGRAMMER Oxygen Saturation 100% 05/13/2024 2:37 AM ETL PROGRAMMER Inhaled Oxygen Concentration - - Weight 77.1 kg (170 lb) 05/12/2024 11:29 PM ETL PROGRAMMER Height 165.1 cm (5' 5) 05/12/2024 11:29 PM ETL PROGRAMMER Body Mass Index 28.29 05/12/2024 11:29 PM ETL PROGRAMMER Plan of Treatment Upcoming Encounters Date Type Department Care Team (Late st Contact Info) Description 01/15/2025 2:45 PM CDT Office Visit [facility] - [facility] - [place] [address] [place] [address] Farhat Griffiths, PAC [address] [place] [address] Health Maintenance Due Date Last [...] this topic Insurance MEDICAID [place] Care Teams Aquatic Director Relationship Specialty Start Date End Date Orquidea Justice APRN, TELETYPE CLERK [address] [place] [address] PCP - General Advanced Practice Nurse 05/03/23
--- OUTSIDE RECORDS SUMMARY | 2025-01-10 22:38 | XMS_ITS | Clinical Summary ---
Author Organization [facility] Address [address] [place] [address] Care Team Providers Care Manager Internship Name Role Phone No, Physician Primary Care Provider [phone] Allergies Active Allergy Reactions Criticality Noted Date [...] often do you attend chur ch or latter-day services? More than 4 times per year 05/04/2022 Do you belong to any clubs o r organizations such as sikh groups, unions, fraternal or athletic groups, or [...] staff should administer the PHQ-9) 0 05/04/2022 [facility] [place] of Occupat ional Health - Occupational Stress [...] place to sleep or slept in a custodial (including now)? No 05/04/2022 Personal Safety Answer Date Recorded Have you ever been in or are you currently in a harmful physical or emotional relationship or is someone making you feel afraid or unsafe? Denies 05/22/2023 Comments No Sex and Gender Information Value Date Recorded Sex Assigned at Not on file Legal Sex Female 3:55 AM VOLUNTEER SERVICES COORDINATOR Gender Identity Not on file Sexual Orientation Not on file Obstetrics History Para Term AB IAB SAB Ectopic Multiple Livin g Live Births 1 Date Outcome GA Total Labor Labor/2nd/3rd Weight Sex Type Anes PTL Gloria A1 A5 Name Clin Last Filed Vital Signs Vital Sign Reading Time Taken Comments Blood Pressure 142/73 05/22/2023 12:00 PM VOLUNTEER SERVICES COORDINATOR Pulse 95 05/22/2023 12:00 PM VOLUNTEER SERVICES COORDINATOR Temperature 36.8 C (98.2 F) 05/22/2023 11:35 AM VOLUNTEER SERVICES COORDINATOR Respiratory Rate 18 05/22/2023 12:00 PM VOLUNTEER SERVICES COORDINATOR Oxygen Saturation 96% 05/22/2023 12:00 PM VOLUNTEER SERVICES COORDINATOR Inhaled Oxygen Concentration - - Weight 81.6 kg (180 lb) 05/22/2023 11:35 AM VOLUNTEER SERVICES COORDINATOR Height 165.1 cm (5' 5) 05/22/2023 11:35 AM VOLUNTEER SERVICES COORDINATOR Body Mass Index 29.95 05/22/2023 11:35 AM VOLUNTEER SERVICES COORDINATOR Plan of Treatment Health Maintenance Due Date [...] HEPATITIS PANEL, ACUTE STAT 05/04/2022 2:41 AM VOLUNTEER SERVICES COORDINATOR from Last 3 Months or Most Recently Relevant to Health Maintenance Results * Hepatitis panel, acute (05/04/2022 2:41 AM VOLUNTEER SERVICES COORDINATOR) Hep A IgM Nonreactive Nonreactive [facility] Comment: Interpretive Data: If Hep A IgM Ab is reported as Equivocal, a new sample should be drawn in two weeks for testing. Current interpretive data was last revised on 19. Testing performed by: [address] [address] Hep B core IgM Nonreactive Nonreactive [facility] ([place]) Comment: Interpretive Data If HepB Core IgM Ab is reported as Equivocal, a new sample should be drawn in two weeks for testing. Current interpretive data was last revised on 19. Testing performed by: [address] [address] Hep C Ab Nonreactive Nonreactive [facility] [...] last revised on 2019. Testing performed by: [address] [address] HepBsAg Nonreactive Nonreactive [facility] ([place]) Comment:Testing performed by : [address] [address] Blood 05/04/2022 2:41 AM VOLUNTEER SERVICES COORDINATOR 05/04/2022 9:38 AM VOLUNTEER SERVICES COORDINATOR Clari Monroy DO LAB MICROBIOLOGY - GENE RAL ORDERABLES Final Result [facility] Department [place] [address] from Last 3 Months or Most Recently Relevant to Health Maintenance Insurance [facility] Member Subscriber Plan / Payer ( fective 2021-Present) Name:Mariya Billingsley Relation to Subscriber:Child Name:ANASTASIIA BILLINGSLEY (Home) Address: [address] [place] [address] [place] [address] Payer ID:[id number] (NAIC) Type:[employer] Address: [address] [place] [id number] Care Teams Manager Internship Relationship Specialty Start Date End Date No, Physician PCP - General 01/14/22
--- OUTSIDE RECORDS SUMMARY | 2025-01-10 22:38 | XMS_ITS | Clinical Summary ---
Author Organization [facility] Address [address] [place] [address] Phone Care Team Providers Care Inspector Soldering Name Role Phone Unavailable Primary Care Provider Unavailabl e Allergies Active Allergy Reactions Criticality Noted Date Comments Adhesive Rash Low 05/04/2022 Medications VIT-IRON FUM-FOLIC AC ORAL Take by mouth. Active cephALEXin (KEFLEX) 500 mg capsule Take 1 Capsule (500 mg) by mouth 4 times daily. 20 Capsule 05/28/2022 4:34 PM HAT TRIMMER 05/27/2022 Active Active Problems Problem Noted Date Diagnosed Date High-risk in second trimester 05/25/20 Delivery by classical section History of COVID-19 05/25/2022 Delivery of by section 2021 Encounter for blood typing 05/18/2022 Gestational diabetes mellitus, class A1 05/18/20 MFM tx; Classical c/s ([facility]) 05/04/2022 COVID-19 virus infection 01/14/2022 Immunizations Immunization [...] on file Legal Sex Female 4:07 AM HAT TRIMMER Gender Identity Not on file Sexual Orientation Not on file Last Filed Vital Signs Vital Sign Reading Time Taken Comments Blood Pressure 125/75 05/28/2022 12:00 AM HAT TRIMMER Pulse 72 05/28/2022 12:00 AM HAT TRIMMER Temperature 36.2 C (97.2 F) 05/28/2022 12:00 AM HAT TRIMMER Respiratory Rate 20 05/28/2022 12:00 AM HAT TRIMMER Oxygen Saturation 98% 05/28/2022 12:00 AM HAT TRIMMER Inhaled Oxygen Concentration - - Weight 79 kg (174 lb 2.6 oz) 05/27/2022 10:28 PM HAT TRIMMER Height 165.1 cm (5' 5) 05/27/2022 10:28 PM HAT TRIMMER Body Mass Index 28.98 05/27/2022 10:28 PM HAT TRIMMER Plan of Treatment Health Maintenance Due Date [...] VAGINOSIS/VAGINITIS PANEL PLUS Routine 05/12/2022 12:33 AM HAT TRIMMER from Last 3 Months or Most Recently Relevant to Health Maintenance Results * VAGINOSIS/VAGINITIS PANEL PLUS (05/12/2022 12:33 AM HAT TRIMMER) CHLAMYDIA DNA AMPLIFICATION NOT DETECTED Not Detected 05/13/2022 12:47 PM HAT TRIMMER [facility] GC DNA AMPLIFICATION NOT DETECTED Not Detected 05/13/2022 12:47 PM HAT TRIMMER [facility] TRICHOMONAS VAGINALIS BY PCR Not Detected Not Detected 05/13/2022 12:47 PM HAT TRIMMER [facility] SOREN SPECIES, NOT GLABRATA BY PCR Not Detected Not Detected 05/13/2022 12:47 PM HAT TRIMMER [facility] SOREN GLABRATA BY PCR NOT DETECTED Not Detected 05/13/2022 12:47 PM HAT TRIMMER [facility] BACTERIAL VAGINOSIS BY PCR Not Detected Not Detected 05/13/2022 12:47 PM HAT TRIMMER [facility] Genital SPECIMEN FROM VAGINA / Unknown Collection / Unknown 05/12/2022 12:33 AM HAT TRIMMER 05/12/2022 12:43 AM HAT TRIMMER Jeannette Castillo MD MICROBIOLOGY - GENERAL ORDERA BLES Final Result [facility] CLIA# [id number] [address] [place] [address] from Last 3 Months or Most Recently Relevant to Health Maintenance Insurance [place] MED[place] RX [employer] Express [facility] [employer] [place] PL[employer] (INTERNAL) [facility] Internal Plans Advance Directives For more information, please contact: [phone] * Full Code (Latest Code Status on [...]
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
[2025-01-10 23:25] LABS: Magnesium 2.0 mg/dL (1.6-2.3)
[2025-01-10 23:32] LABS: Hemoglobin A1C 5.4 % (<5.7)
[2025-01-10 23:34] LABS: INR 1.0; Prothrombin Time 13.6 Seconds (11.1-14.7)
[2025-01-10 23:35] LABS: Partial Thromboplastin Time 27.4 Seconds (22.3-36.8)
[2025-01-10 23:41] LABS: Add Urine Microscopic? YES; Appearance Urine Cloudy (Clear); Glucose Urine UA Negative (Negative); Leukocyte Esterase Ur Trace LEU/UL (Negative); Nitrate Urine Negative (Negative); Non Pathogenic Casts 0-2; Specific Grav Ur 1.014 (1.001-1.035)
[2025-01-10 23:52] LABS: Cannabinoid Screen Urine Negative (Negative)
[2025-01-11 00:01] LABS: Thyroid Stimulating Hormone Reflex 2.900 uIU/mL (0.465-4.68)
[2025-01-11 00:09] VITALS: BP 141/79; PULSE 71; RESP 17; O2SAT 100
[2025-01-11 01:01] LABS: Pregnancy On Board Control Positive
[2025-01-11 01:51] VITALS: BP 118/66; PULSE 81
[2025-01-11 01:52] VITALS: BP 119/71; PULSE 72
[2025-01-11 01:53] VITALS: BP 120/58; PULSE 81
== END 2025-01-11 02:11 | disposition home or self-care (01) ==
PROVIDERS: Emergency Medicine; Emergency Provider Registered Nurse
DX: R42 Dizziness and giddiness (principal); E86.0 Dehydration; R73.03 Prediabetes; K58.9 Irritable bowel syndrome, unspecified; F17.290 Nicotine dependence, other tobacco product, uncomplicated
CPT/HCPCS: 36415; 71046; 80053; 80307; 81001; 81025; 82077; 82948; 83036; 83735; 84443; 85025; 85610; 85730; 93005; 96360; 99284

== ENCOUNTER 2025-01-15 11:17 | Outpatient (CLI) | payer BC, MEDICAID, SELFPAY ==
--- OUTSIDE RECORDS SUMMARY | 2025-01-15 11:22 | XMS_ITS | Clinical Summary ---
Author Organization [facility] Address [address] [place] [phone] Phone Care Team Providers Care Antique Dealer Name Role Phone Unavailable Primary Care Provider Unavailabl e Allergies Active Allergy Reactions Criticality Noted Date Comments Adhesive Rash Low 05/04/2022 Medications VIT-IRON FUM-FOLIC AC ORAL Take by mouth. Active cephALEXin (KEFLEX) 500 mg capsule Take 1 Capsule (500 mg) by mouth 4 times daily. 20 Capsule 05/28/2022 4:34 PM ENTERPRISE APPLICATION ARCHITECT 05/27/2022 Active Active Problems Problem Noted Date Diagnosed Date High-risk in second trimester 05/25/20 Delivery by classical section History of COVID-19 05/25/2022 Delivery of by section 2021 Encounter for blood typing 05/18/2022 Gestational diabetes mellitus, class A1 05/18/20 MFM tx; Classical c/s ([facility]) 05/04/2022 COVID-19 virus infection 01/14/2022 Immunizations [...] on file Legal Sex Female 4:07 AM ENTERPRISE APPLICATION ARCHITECT Gender Identity Not on file Sexual Orientation Not on file Last Filed Vital Signs Vital Sign Reading Time Taken Comments Blood Pressure 125/75 05/28/2022 12:00 AM ENTERPRISE APPLICATION ARCHITECT Pulse 72 05/28/2022 12:00 AM ENTERPRISE APPLICATION ARCHITECT Temperature 36.2 C (97.2 F) 05/28/2022 12:00 AM ENTERPRISE APPLICATION ARCHITECT Respiratory Rate 20 05/28/2022 12:00 AM ENTERPRISE APPLICATION ARCHITECT Oxygen Saturation 98% 05/28/2022 12:00 AM ENTERPRISE APPLICATION ARCHITECT Inhaled Oxygen Concentration - - Weight 79 kg (174 lb 2.6 oz) 05/27/2022 10:28 PM ENTERPRISE APPLICATION ARCHITECT Height 165.1 cm (5' 5) 05/27/2022 10:28 PM ENTERPRISE APPLICATION ARCHITECT Body Mass Index 28.98 05/27/2022 10:28 PM ENTERPRISE APPLICATION ARCHITECT Plan of Treatment Health Maintenance Due Date [...] VAGINOSIS/VAGINITIS PANEL PLUS Routine 05/12/2022 12:33 AM ENTERPRISE APPLICATION ARCHITECT from Last 3 Months or Most Recently Relevant to Health Maintenance Results * VAGINOSIS/VAGINITIS PANEL PLUS (05/12/2022 12:33 AM ENTERPRISE APPLICATION ARCHITECT) CHLAMYDIA DNA AMPLIFICATION NOT DETECTED Not Detected 05/13/2022 12:47 PM ENTERPRISE APPLICATION ARCHITECT [facility] GC DNA AMPLIFICATION NOT DETECTED Not Detected 05/13/2022 12:47 PM ENTERPRISE APPLICATION ARCHITECT [facility] TRICHOMONAS VAGINALIS BY PCR Not Detected Not Detected 05/13/2022 12:47 PM ENTERPRISE APPLICATION ARCHITECT [facility] SOREN SPECIES, NOT GLABRATA BY PCR Not Detected Not Detected 05/13/2022 12:47 PM ENTERPRISE APPLICATION ARCHITECT [facility] SOREN GLABRATA BY PCR NOT DETECTED Not Detected 05/13/2022 12:47 PM ENTERPRISE APPLICATION ARCHITECT [facility] BACTERIAL VAGINOSIS BY PCR Not Detected Not Detected 05/13/2022 12:47 PM ENTERPRISE APPLICATION ARCHITECT [facility] Genital SPECIMEN FROM VAGINA / Unknown Collection / Unknown 05/12/2022 12:33 AM ENTERPRISE APPLICATION ARCHITECT 05/12/2022 12:43 AM ENTERPRISE APPLICATION ARCHITECT Jeannette Castillo MD MICROBIOLOGY - GENERAL ORDERA BLES Final Result [facility] CLIA# [id number] [place] [address] from Last 3 Months or Most Recently Relevant to Health Maintenance Insurance [place] [employer] [employer] [facility] [employer] [place] [employer] (INTERNAL) [facility] Internal Plans Advance Directives For more information, please contact: [phone] * Full Code (Latest Code Status on [...]
--- OUTSIDE RECORDS SUMMARY | 2025-01-15 11:22 | XMS_ITS | Clinical Summary ---
Author Organization [facility] Address [address] [place] [address] Phone Care Team Providers Care Cullet Washer Name Role Phone Orquidea Justice APRN, LINA [...] Sex Assigned at Female 05/13/2024 12:39 AM ORTHO NURSE Legal Sex Female 8:07 AM CDT Gender Identity Female 05/13/2024 12:39 AM ORTHO NURSE Sexual Orientation Not on file Last Filed Vital Signs Vital Sign Reading Time Taken Comments Blood Pressure 154/70 05/13/2024 2:37 AM ORTHO NURSE Pulse 84 05/13/2024 2:37 AM ORTHO NURSE Temperature 36.4 C (97.6 F) 05/12/2024 11:29 PM ORTHO NURSE Respiratory Rate 18 05/13/2024 2:37 AM ORTHO NURSE Oxygen Saturation 100% 05/13/2024 2:37 AM ORTHO NURSE Inhaled Oxygen Concentration - - Weight 77.1 kg (170 lb) 05/12/2024 11:29 PM ORTHO NURSE Height 165.1 cm (5' 5) 05/12/2024 11:29 PM ORTHO NURSE Body Mass Index 28.29 05/12/2024 11:29 PM ORTHO NURSE Plan of Treatment Upcoming Encounters Date Type Department Care Team (Late st Contact Info) Description 01/22/2025 3:15 PM CDT Office Visit [facility] - Primary [facility] - [place] [address] [place] [address] Farhat Griffiths, PAC [address] [place] [address] Health Maintenance Due Date Last [...] this topic Insurance MEDICAID [place] Care Teams Cullet Washer Relationship Specialty Start Date End Date Orquidea Justice APRN, CONTROL CABINET ASSEMBLER [address] [place] [address] PCP - General Advanced Practice Nurse 05/03/23
--- OUTSIDE RECORDS SUMMARY | 2025-01-15 11:22 | XMS_ITS | Clinical Summary ---
Author Organization [facility] Address [address] [place] [address] Care Team Providers Care Credit Card Clerk Name Role Phone No, Physician Primary Care Provider [phone] Allergies Active Allergy Reactions Criticality Noted Date [...] Cessation:Counseling Given: Not Answered Social Connection and Isolation Panel Answer Date Recorded In a typical week, how many times do you talk on the phone with family, friends, or neighbors? More than three times a week 05/04/2022 How often do you get togethe r with friends or relatives? More than three times a week 05/04/2022 How often do you attend chur ch or episcopal services? More than 4 times per year 05/04/2022 Do you belong to any clubs o r organizations such as sabianism groups, unions, fraternal or athletic groups, or [...] staff should administer the PHQ-9) 0 05/04/2022 [facility] - Occupational Stress Questionnaire Answer Date Recorded [...] on file Legal Sex Female 3:55 AM LOGISTICS ACCOUNT MANAGER Gender Identity Not on file Sexual Orientation Not on file Obstetrics History Para Term AB IAB SAB Ectopic Multiple Livin g Live Births 1 Date Outcome GA Total Labor Labor/2nd/3rd Weight Sex Type Anes PTL Gloria A1 A5 Name Clin Last Filed Vital Signs Vital Sign Reading Time Taken Comments Blood Pressure 142/73 05/22/2023 12:00 PM LOGISTICS ACCOUNT MANAGER Pulse 95 05/22/2023 12:00 PM LOGISTICS ACCOUNT MANAGER Temperature 36.8 C (98.2 F) 05/22/2023 11:35 AM LOGISTICS ACCOUNT MANAGER Respiratory Rate 18 05/22/2023 12:00 PM LOGISTICS ACCOUNT MANAGER Oxygen Saturation 96% 05/22/2023 12:00 PM LOGISTICS ACCOUNT MANAGER Inhaled Oxygen Concentration - - Weight 81.6 kg (180 lb) 05/22/2023 11:35 AM LOGISTICS ACCOUNT MANAGER Height 165.1 cm (5' 5) 05/22/2023 11:35 AM LOGISTICS ACCOUNT MANAGER Body Mass Index 29.95 05/22/2023 11:35 AM LOGISTICS ACCOUNT MANAGER Plan of Treatment Health Maintenance Due Date [...] HEPATITIS PANEL, ACUTE STAT 05/04/2022 2:41 AM LOGISTICS ACCOUNT MANAGER from Last 3 Months or Most Recently Relevant to Health Maintenance Results * Hepatitis panel, acute (05/04/2022 2:41 AM LOGISTICS ACCOUNT MANAGER) Hep A IgM Nonreactive Nonreactive [facility] ([place]) Comment: Interpretive Data: If Hep A IgM Ab is reported as Equivocal, a new sample should be drawn in two weeks for testing. Current interpretive data was last revised on 19. Testing performed by: [address] [id number] Hep B core IgM Nonreactive Nonreactive C [facility] ([place]) Comment: Interpretive Data If HepB Core IgM Ab is reported as Equivocal, a new sample should be drawn in two weeks for testing. Current interpretive data was last revised on 19. Testing performed by: [address] [id number] Hep C Ab Nonreactive Nonreactive [facility] [...] last revised on 2019. Testing performed by: [address] [address] HepBsAg Nonreactive Nonreactive [facility] ([place]) Comment:Testing performed by : [address] [id number] Blood 05/04/2022 2:41 AM LOGISTICS ACCOUNT MANAGER 05/04/2022 9:38 AM LOGISTICS ACCOUNT MANAGER Clari Monroy DO LAB MICROBIOLOGY - GENE RAL ORDERABLES Final Result [facility] ([place]) [facility] Department [place] [address] from Last 3 Months or Most Recently Relevant to Health Maintenance Insurance [facility] Care Teams Credit Card Clerk Relationship Specialty Start Date End Date No, Physician PCP - General 01/14/22
[2025-01-15 13:00] LABS: Beta HCG Quantitative < 2.39 mIU/ML
== END 2025-01-15 11:18 | disposition home or self-care (01) ==
LOC: ANHIMG 11:19
PROVIDERS: Visit Provider Student in an Organized Health Care Education/Training Program
DX: Z30.9 Encounter for contraceptive management, unspecified (principal)
CPT/HCPCS: 36415; 84702